=== PATIENT | female | born 1970 | race Two or more races ===

== ENCOUNTER 2016-05-18 08:49 | Emergency (ER) | payer MEDICAID ==
[~2016-05-18] VITALS: Ht 170.2 cm; Wt 89.4 kg
[2016-05-18 09:40] VITALS: BP 123/49
== END 2016-05-18 10:36 | disposition home or self-care (01) ==
LOC: ER 08:49
DX: S52.571A Other intraarticular fracture of lower end of right radius, initial encounter for closed fracture (principal); V00.131A Fall from skateboard, initial encounter; Y93.51 Activity, roller skating (inline) and skateboarding; Y99.8 Other external cause status; Y92.89 Other specified places as the place of occurrence of the external cause
CPT/HCPCS: 29125; 73110